=== PATIENT | female | born 1940 | race Caucasian/White ===

== ENCOUNTER → 2017-06-24 15:28 | Outpatient (CLI) | payer MEDICARE, OTHER, SELFPAY ==
--- NOTE | 2017-06-24 15:35 | MR_ITS ---
MR knee RT wo con Ordering Physician: Cam Alvarado MD Patient Age: 76 years: Female HISTORY: ITS.REASON: ACUTE PAIN OF RIGHT KNEE TECHNIQUE: Multiplanar multisequence imaging of 1.5 MR COMPARISON :September 2015 MRI of the right knee FINDINGS Large joint effusion. Most evident at suprapatellar bursa. Small/moderate Topete's cyst associated measured 4 cm length, Patellofemoral joint arthritis:. Significant degenerative arthritic changes. Prominent diffuse chondral loss & thinning most notable at lateral patellofemoral joint. Scattered subchondral cyst most evident along posterior margin of patella. Slight lateral bias patella slightly more evident today versus 2016.. Developing Marginal osteophytes about patella at patellofemoral joint.. . Lateral compartment prominent arthritic change... Joint space narrowing. Diffuse Chondral thinning and irregularity. Generous Marginal osteophytes from margin lateral compartment. Lateral meniscal tear. Meniscal tear involving the inferior surface of posterior horn, extends into the posterior body and continues as complex horizontal tear disrupting the anterior horn lateral meniscus. Probable small meniscal cyst draping downward anteriorly from anterior horn tear... Possible fragmentation of the anterior horn extending towards ACL insertion region The body of lateral meniscus is also noted to be somewhat displaced from the joint, as it accompanied the lateral marginal osteophytes laterally. . The medial compartment and medial meniscus are better maintained generous volume medial meniscus. Only minor chondral scuffing and irregularities of question is seen at the medial compartment. The medial and lateral collateral ligament I believe are intact although upper normal signal is seen at the superior insertion of the lateral collateral ligament the ACL, PCL intact.. It appears a noted small cyst inferior ACL has resolved Quadriceps tendon and patellar tendon appear intact. Fluid overlying patellar tendon less pronounced today.. & Nonspecific. IMPRESSION: 1. Marked progression of degenerative arthritic changes at Lateral Compartment since since 2016 MR study. ... Significant progressive joint space narrowing & chondral loss in the interval 2. Also Extensive Lateral Meniscal Tear has developed/progressed Tear beginning inferior surface posterior horn body, involving body, but most pronounced complex tear at anterior horn. 2. Patellofemoral joint arthritis again noted, with only minor progression since 2016 at this site 3. Large joint effusion.. Moderate-sized Topete's cyst again noted.
== END ==
PROVIDERS: Family Provider Family Medicine; PCP Family Medicine; Visit Provider Family Medicine
DX: M25.561 Pain in right knee (principal)
CPT/HCPCS: 73721

== ENCOUNTER 2017-08-24 09:30 | Outpatient (RCR) | payer MEDICARE, OTHER, SELFPAY | END 2017-08-24 09:31 | disposition home or self-care (01) | LOC: PT 09:30 | PROVIDERS: Family Provider Family Medicine; PCP Family Medicine; Visit Provider Orthopaedic Surgery | DX: M17.11 Unilateral primary osteoarthritis, right knee (principal) | CPT/HCPCS: 97010; 97014; 97016; 97033; 97035; 97110; G0283 ==

== ENCOUNTER → 2018-08-29 09:37 | Outpatient (CLI) | payer MEDICARE, OTHER, SELFPAY ==
--- NOTE | 2018-08-29 09:40 | MM_ITS ---
MM Dig screening mamm BI w/CAD CAD Screening COMPARISON: Digital mammograms 12/27/2011 INDICATION: There is no personal or family history of breast cancer. There is been previous biopsy right breast for benign disease. TECHNIQUE: Standard CC and MLO images were obtained. R2 CAD reviewed. FINDINGS: Moderate fibroglandular densities are seen in the central portions of both breasts. There is an asymmetric density with irregular borders upper outer quadrant right breast which is likely primarily post biopsy scarring. However there has been a slight increase in size and somewhat more suspicious irregular borders since the previous mammogram in addition there are small benign-appearing nodular densities in both breasts. However the nodular density lower outer quadrant right breast has shown interval increase in size from the previous study. Recommend the patient return for spot compression views of the right breast asymmetric lesion along with ultrasound of this lesion and the smaller nodular lesion as well. There are couple benign-appearing microcalcifications in each breast. There are 2 mole markers left breast. IMPRESSION: Upper fatty parenchyma with possible interval change in asymmetric density right breast BI-RADS Category: 0 Need Additional Imaging Evaluation RECOMMENDED FOLLOW-UP: IMM - IMMEDIATE FOLLOW-UP RECOMMENDED (A letter has been sent to the patient regarding results of the study.)
== END ==
PROVIDERS: PCP Family Medicine; Visit Provider Family Medicine
DX: Z12.31 Encounter for screening mammogram for malignant neoplasm of breast (principal)
CPT/HCPCS: 77067

== ENCOUNTER → 2018-09-28 12:40 | Outpatient (CLI) | payer MEDICARE, OTHER, SELFPAY ==
--- NOTE | 2018-09-28 12:44 | MM_ITS ---
MM Dig mamm DX unilat RT CAD, US breast RT complete INDICATION: Old abnormal mammogram ORDERING PHYSICIAN: Cam Alvarado MD PATIENT AGE: 77 years COMPARISON: 08/29/2018, 12/27/2011 TECHNIQUE: Spot compression views performed of the right breast along with right breast ultrasound FINDINGS: Average fibroglandular tissue noted. Asymmetric density is once again noted within the upper outer aspect of the right breast. Spot compression views failed to demonstrate a discrete mass in this area. Asymmetric density may be related prior surgery but is not felt to be significantly changed.. There is a well-circumscribed nodule in the medial aspect of the right breast measuring approximately 9 x 7 mm. Right breast ultrasound: There are multiple cysts present including a 2 mm cyst at 12:00, 3 mm cyst at 2:00, 3 mm cyst at 3:00, lobulated 7 mm cyst at 5:00 which may correspond to the described mammographic abnormality, 5 mm cyst at 9:00, complex cystic lesion measuring 9 x 5 mm at 9:00, and 4 mm cyst at 10:00, 4 mm cyst at 11:00, 5 mm cyst in the retroareolar region. IMPRESSION: No convincing evidence of malignancy. Multiple right breast cysts. Probably benign findings. Recommend 6 month mammographic and sonographic follow-up on the right BI-RADS Category: 3 Probably Benign Finding Short Term Follow-up RECOMMENDED FOLLOW-UP: 6M - 6 MONTH FOLLOW-UP (A letter has been sent to the patient regarding results of the study.)
== END ==
PROVIDERS: PCP Family Medicine; Visit Provider Family Medicine
DX: R92.8 Other abnormal and inconclusive findings on diagnostic imaging of breast (principal)
CPT/HCPCS: 76641; 77065

== ENCOUNTER → 2021-08-20 07:43 | Outpatient (CLI) | payer MEDICARE, OTHER, SELFPAY ==
--- NOTE | 2021-08-20 07:46 | US_ITS ---
FINAL REPORT CLINICAL HISTORY: HYPERTENSION,AAA FINDINGS: Sonographic images of the abdominal aorta were obtained. The abdominal aorta measures up to 1.8 cm. There is no evidence of abdominal aortic aneurysm. The iliacs are within normal limits. IMPRESSION: No evidence of abdominal aortic aneurysm. Reviewed, Interpreted and Dictated by Asad Christianson III, MD Transcribed by Angeline Briones Authenticated by Asad Christianson III, MD on 08/20/2021 09:29:39 AM [facility]
== END ==
PROVIDERS: PCP Family Medicine; Visit Provider Family Medicine
DX: I10 Essential (primary) hypertension (principal); Z13.6 Encounter for screening for cardiovascular disorders
CPT/HCPCS: 76705

== ENCOUNTER → 2021-10-16 08:46 | Outpatient (CLI) | payer MEDICARE, OTHER, SELFPAY ==
--- NOTE | 2021-10-16 08:51 | XR_ITS ---
FINAL REPORT TECHNIQUE: Bone mineral density was calculated of the lumbar spine and hip. CLINICAL HISTORY: . osteopenia prior 2017 FINDINGS: DEXA BONE DENSITY AXIAL SKELETON Using L1-4, the bone mineral density of the spine is 1.076 g/cm2, corresponding to T-score of 0.3. Note these values may be falsely elevated secondary to hypertrophic change. Using the left hip, the bone mineral density of the femoral neck is 0.601 g/cm2, corresponding to a T-score of -2.2. NOTE: T-score: Standard deviation compared with peak bone mass of young adult mean. *Following the recommendations of the International Society of Bone densitometry, classification of hip BMD is based on the lower of two T-scores; total hip or femoral neck. IMPRESSION: Diminished bone mineral density of the left hip consistent with osteopenia. FRAX 10 year fracture risk is 15 % for major osteoporotic fracture. Reviewed, Interpreted and Dictated by Asad Christianson III, MD Transcribed by Hilda Rowan Authenticated and [facility]
== END ==
PROVIDERS: PCP Family Medicine; Visit Provider Family Medicine
DX: M85.89 Other specified disorders of bone density and structure, multiple sites (principal)
CPT/HCPCS: 77080

== ENCOUNTER 2025-01-14 10:05 | Outpatient (CLI) | payer MEDICARE, OTHER, SELFPAY ==
--- OUTSIDE RECORDS SUMMARY | 2023-10-24 05:00 | XMS_ITS ---
Author Organization [facility] Address [address] [facility] [address] [facility] [address] [place] [id number] Care Team Providers Care Optical Design Engineer Name Role Phone Nelson Barrow Primary Care Provider JENNIFER BRUCE Unavailable Unavailable REASON FOR VISIT 6 Month Check Up Encounters Encounter Location Date Provider Diagnosis [facility] [address] [facility] [address] [place] [id number] 10/24/2023 Nelson Barrow Plan Of Treatment Next Appt Details Provider Name:Nelson Wilson ry, 07/15/2025 09:00:00 AM, [address], [address], [place], [id number], Progress Notes * Debbie CROCKETTDOB:1940 (84 yo F)Acc No.[id number]:10/24/2023 Progress Notes Patient: Debbie SCHMID Provider: Casandra Barrow M.D. :1940 A ge:82 Y S ex:Female Date:10/24/2023 Address:[address] [place] [address] Subjective: * Chief Complaints: * 1 . 6 Month Check Up. * Medical History: Objective: * Vitals: Assessment: Plan: * Treatment: * Images: Billing Information: * Visit Code: * Procedure Codes: * Electronic signature of Nga Barrow MD on 01/14/2025 at 10:10 AM EDT Sign off status: Pending * Provider: Casandra Barrow M.D. Date: 0 10/24/2023 Generated for Vinny musa/Edward/Leon on: 0 01/14/2025 10:10 AM EDT
--- OUTSIDE RECORDS SUMMARY | 2024-03-26 07:00 | XMS_ITS ---
Author Organization [facility] Address [address] [place] [id number] Care Team Providers Care First Crusher Name Role Phone Nelson Barrow Primary Care Provider JENNIFER BRUCE Unavailable Unavailable Allergies Allergen (clinical drug ingredient) Drug/Non Drug Allergy documented on EMR Reaction Allergy Type Onset Date Status codeine Codeine Unknown Drug Allergy Active Results Component Value Reference Range Notes Influenza Screen (in house) Reviewed date:03/26/2024 11:59:10 AM Interpretation: Performing Lab: Notes/Report: results Neg Covid test (in house) Reviewed date:03/26/2024 11:59:02 AM Interpretation: Performing Lab: Notes/Report: Result: Pos REASON FOR VISIT cough, chills Medications Medication SIG (Take, Route, Frequency, Duration) Notes Start Date End Date Status Verapamil HCl ER 180 MG 2 capsule Orally Once a day; Duration: 30 day(s) Active Promethazine-DM 6.25-15 MG/5ML 5 ml as needed Orally every 6 hrs 03/26/2024 Active Paxlovid (300/100) 20 x 150 MG & 10 x 100MG 3 tablets Orally Twice a day 03/26/2024 Active Aspirin 81 MG 1 tab(s) orally once a day; Duration: 30 day(s) Active Pravastatin Sodium 40 MG 1 tab(s) orally once a day (at bedtime); Duration: 30 day(s) Active Chlorthalidone 25 MG 1 tab(s) orally onc e a day; Duration: 90 days Active metroNIDAZOLE 500 MG 1 tablet Orally Thr ee times a day; Duration: 10 day(s) 07/27/2023 Active Hyoscyamine Sulfate 0.125 MG 1 tablet on the tongue and allow to dissolve as needed Orally every 4 hrs, prn 07/22/2023 Active PriLOSEC OTC 20 MG 1 cap(s) orally 2 ti mes a day Active Vital Signs Weight 172.4 lbs 03/26/2024 Blood pressure systolic 138 mm Hg 03/26/20 24 Blood pressure diastolic 68 mm Hg 024 Heart Rate 74 /min 03/26/2024 Height 62.50 in 03/26/2024 BMI 31.03 kg/m2 03/26/2024 Encounters Encounter Location Date Provider Diagnosis [facility] [address] [facility] [address] [facility] [address] [place] [id number] 03/26/2024 Nelson Barrow COVID-19 U07.1 Assessments Encounter Date Diagnosis (ICD Code) Assessment Notes Treatment Notes Treatment Clinical Notes Section Notes 03/26/2024 COVID-19 (ICD-10 - U07.1) Plan Of Treatment Medication Medication Name Sig Start Date Stop Date Notes Promethazine-DM 6.25-15 MG/5ML 5 ml as n eeded Orally every 6 hrs 03/26/2024 Paxlovid (300/100) 20 x 150 MG & 10 x 100MG 3 tablets Orally Twice a day 03/26/2024 Next Appt Details Follow Up: prn, Reason: Provider Name:Nelson Wilson ry, 07/15/2025 09:00:00 AM, [address] [facility] [address] [facility], [address], [place], [phone], Progress Notes * Debbie CROCKETTDOB:1940 (84 yo F)Acc No.[id number]:03/26/2024 Progress Notes Patient: Debbie SCHMID Provider: Casandra Barrow M.D. :1940 A ge:83 Y S ex:Female Date:03/26/2024 Address:[address] [place], [place] [id number] Subjective: * Chief Complaints: * 1 . Cough, chills. * HPI: E NT/respiratory: 83 year old female presents with c/o cough P t complains of dry without any sputum production cough . Associated with fever, nasal congestion and body aches . * ROS: D ERMATOLOGY: no R terrie. n o H meena. G ASTROENTEROLOGY: no N ausea. n o V omiting. U ROLOGY: no D ifficulty urinating. n o B lood in urine. * Medical History: H ypertension, Hyperlipidemia, Esophageal reflux, Thrombophlebitis right leg 2011, Right lateral meniscal tear, Cologuard 2018. * Surgical History: C holecystectomy , Hysterectomy , RT Leg Venous Laser Surgery . * Hospitalization/Major Diagno stic Procedure: D enies Past Hospitalization. * Family History: F ather: , cerebral aneurysm. M other: . 1 brother(s) , 1 sister(s) . 1 son(s) , 1 daughter(s) . . * Social History: C URRENT TOBACCO USE S moking Status: Patient does NOT smoke. C affeine: yes, frequency:. Marital Status: . Past smoking status: no. * Medications: T aking Aspirin 81 MG Tablet Delayed Release 1 tab(s) orally once a day , Taking PriLOSEC OTC 20 MG Tablet Delayed Release 1 cap(s) orally 2 times a day , Taking Hyoscyamine Sulfate 0.125 MG Tablet Disintegrating 1 tablet on the tongue and allow to dissolve as needed Orally every 4 hrs, prn , Taking metroNIDAZOLE 500 MG Tablet 1 tablet Orally Three times a day , Taking Chlorthalidone 25 MG Tablet 1 tab(s) orally once a day , Taking Pravastatin Sodium 40 MG Tablet 1 tab(s) orally once a day (at bedtime) , Taking Verapamil HCl ER 180 MG Capsule Extended Release 24 Hour 2 capsule Orally Once a day , Discontinued Vitamin D-3 125 MCG (5000 UT) Tablet 1 cap(s) orally once a week , Medication List reviewed and reconciled with the patient * Allergies: C odeine. Objective: * Vitals: W t:172.4, Temp:98.2, BP:138/68, HR:74, O2 Sat:94% on RA, Nurse:benigno, Ht: 62.50, BMI:31.03. * Examination: E NT/Respiratory: General Appearance: N AD. H eart : RRR. L ungs: c lear to auscultation bilaterally. Assessment: * Assessment: 1. C OVID-19 - U07.1 (Primary) Plan: * Treatment: Value Reference Range r esults Neg * Jen Schwarz 03/26/2024 11:08:3 1 AM > , Provider reviewed results while patient in office. ?LAB: Covid test (in house) (Collection Date & Time - 03/26/2024)* Value Reference Range R esult: Pos * Jen Schwarz 03/26/2024 11:08:0 7 AM > , Provider reviewed results while patient in office. * Procedure Codes: G 2211 Complex e/[place], [address] [place], [address] Flu Test- Nasal Swab, Modifiers: QW , 62053 COVID TEST IN HOUSE, Modifiers: QW * Follow Up: p rn * Images: Billing Information: * Visit Code: 93279 Office Visit, Est Pt., Level 3. * Procedure Codes: G2211 Complex e/[place] [address] [place]. [address] Flu Test- Nasal Swab. Modifiers: QW 79099 COVID TEST IN HOUSE. Modifiers: QW * Electronic signature of Nga Barrow MD on 01/14/2025 at 10:10 AM EDT Sign off status: Pending * Provider: Casandra Barrow M.D. Date: 05/27/2023 Generated for Vinny musa/Edward/eTransmitting on: 0 01/14/2025 10:10 AM EDT History and Physical Notes * HPI (History of Present Illness) Category Sub-Category Detail Notes Category Not es ENT/respiratory cough Pt complains of dry without any sputum production cough . Associated with fever, nasal congestion and body aches Examination Category Sub-Category Detail Notes Category Not es ENT/Respiratory Heart : RRR Lungs: clear to auscultatio n bilaterally General Appearance: NAD
--- OUTSIDE RECORDS SUMMARY | 2024-05-31 05:15 | XMS_ITS ---
Author Organization [facility] Address [address] [facility] [address] [place] [phone] Care Team Providers Care Radius Corner Machine Operator Name Role Phone Pushpa Nelson Primary Care Provider TEO JENNIFER Unavailable Unavailable REASON FOR VISIT flu shot Medications Medication SIG (Take, Route, Frequency, Duration) Notes Start Date End Date Status Verapamil HCl ER 180 MG 2 capsule Orally Once a day; Duration: 30 day(s) Active Aspirin 81 MG 1 tab(s) orally once a day; Duration: 30 day(s) Active Pravastatin Sodium 40 MG 1 tab(s) orally once a day (at bedtime); Duration: 30 day(s) Active Promethazine-DM 6.25-15 MG/5ML 5 ml as needed Orally every 6 hrs 03/26/2024 Active Paxlovid (300/100) 20 x 150 MG & 10 x 100MG 3 tablets Orally Twice a day 03/26/2024 Active PriLOSEC OTC 20 MG 1 cap(s) orally 2 ti mes a day Active metroNIDAZOLE 500 MG 1 tablet Orally Thr ee times a day; Duration: 10 day(s) 07/27/2023 Active Hyoscyamine Sulfate 0.125 MG 1 tablet on the tongue and allow to dissolve as needed Orally every 4 hrs, prn 07/22/2023 Active Chlorthalidone 25 MG 1 tab(s) orally onc e a day; Duration: 90 days Active Immunizations Vaccine Route Administration Date Status Comme nts Fluzone High Dose (65yr and older) IM Intramuscular 05/31/2024 Administered Encounters Encounter Location Date Provider Diagnosis [facility] [address] [facility] [address] [place] [phone] 05/31/2024 [place] Encounter for immunization Z23 Assessments Encounter Date Diagnosis (ICD Code) Assessment Notes Treatment Notes Treatment Clinical Notes Section Notes 05/31/2024 Encounter for immunization (ICD-10 - Z23) Plan Of Treatment Next Appt Details Provider Name:Nelson Pernell Steve ry, 07/15/2025 09:00:00 AM, [address], [address], [place], [phone], Progress Notes * CLAUDIAUrmilaelroyDOB:1940 (84 yo F)Acc No.[id number]:05/31/2024 Patient: Debbie SCHMID Provider: Casandra Barrow M.D. :1940 A ge:83 Y S ex:Female Date:05/31/2024 Address:[address] [place] [address], [place] Subjective: * Chief Complaints: * 1 . Flu shot. * Medical History: * Medications: T aking Aspirin 81 MG [...] once a day (at bedtime) , Taking Paxlovid (300/100) 20 x 150 MG & 10 x 100MG Tablet Therapy Pack 3 tablets Orally Twice a day , Taking Promethazine-DM 6.25-15 MG/5ML Syrup 5 ml as needed Orally every 6 hrs , Taking Verapamil HCl ER 180 MG Capsule Extended Release 24 Hour 2 capsule Orally Once a day , Medication List reviewed and reconciled with the patient Objective: * Vitals: Assessment: * Assessment: 1. E ncounter for immunization - Z23 (Primary) Plan: * Treatment: * Immunizations: Fluzone High Dose (65yr and older) : 0.5 mL (Route: Intramuscular) given by Jen Schwarz on Right Deltoid (Encounter for immunization) * Images: Billing Information: * Visit Code: * Procedure Codes: * Electronic signature of Nga Barrow MD on 01/14/2025 at 10:10 AM EDT Sign off status: Pending * Provider: Casandra Barrow M.D. Date: 0 05/31/2024 Generated for Vinny musa/Edward/Matthewitting on: 0 01/14/2025 10:10 AM EDT
--- OUTSIDE RECORDS SUMMARY | 2024-07-13 04:45 | XMS_ITS ---
Author Organization [facility] Address [address] [place] [id number] Care Team Providers Care Department Chair Name Role Phone Nelson Barrow Primary Care Provider JENNIFER BRUCE Unavailable Unavailable Allergies Allergen (clinical drug ingredient) Drug/Non Drug Allergy documented on EMR Reaction Allergy Type Onset Date Status codeine Codeine Unknown Drug Allergy Active Results Component Value Reference Range Notes P-Comprehensive Metabolic Pa josy (CMP) Reviewed date:07/15/2024 11:51:27 AM Interpretation:gluc 107 Performing Lab: Notes/Report: CLIA: [id number] Lyndon Castillo MD, Security System Sales Consultant [address] [facility] , [address], [place] [address] Test performed by [facility] Sodium 142 135-145 mmol/L Potassium 3.6 3.5-5.3 mmol/L Chloride 102 97-108 mmol/L CO2 26 22-32 mmol/L Glucose 107 65-99 mg/dL BUN 17 8-23 mg/dL Creatinine 0.75 0.50-1.00 mg/dL Calcium 10.0 8.6-10.4 mg/dL eGFR by Creatinine 80 >59 mL/min/1.73m2 Protein 7.6 6.0-8.3 g/dL Albumin 4.2 3.5-5.3 g/dL Alkaline Phosphatase 99 35-121 IU/L ALT (SGPT) 11 <5-47 IU/L AST (SGOT) 16 <5-40 IU/L Bilirubin, Total 0.5 <0.2-1.2 mg/dL A/G Ratio 1.2 1.1-2.5 P-Lipid Panel Reviewed date:07/15/2024 11:51:27 AM Interpretation: Normal Performing Lab: Notes/Report: Test performed by [facility] [employer] [address], [place] [address] Lyndon Castillo MD, Security System Sales Consultant CLIA: [id number] Cholesterol 170 <200 mg/dL Triglycerides 109 <150 mg/dL HDL Cholesterol 43 >39 mg/dL Cholesterol / HDL Ratio 3.95 0.00-4.44 Ratio Non-HDL Cholesterol 127 <130 mg/dL LDL Cholesterol (Calculation) 105 <130 mg/dL LDL Cholesterol Levels* Less than 100 mg/dL Optimal 100 to 129 mg/dL Near Optimal/ Above Optimal 130 to 159 mg/dL Borderline High 160 to 189 mg/dL High 190 mg/dL and above Very High * Categories as recommended by the 2004 ATPIII guidelines LDL/HDL Ratio 2.4 <3.3 Ratio LDL Cholesterol Patient History Test Date: 10/26/2022 LDL Results: 111 Units: mg/dL % Change: - Test Date: 07/13/2024 LDL Results: 105 Units: mg/dL % Change: -5% P-TSH reflex to FT4 Reviewed date:07/15/2024 11:51:27 AM Interpretation: Normal Performing Lab: Notes/Report: Test performed by [employer] [address] , [facility] [address], [place] [address] Lyndon Castillo MD, Security System Sales Consultant CLIA: [id number] TSH reflex to FT4 2.48 0.43-5.25 mU/L P-Microalbumin/Creatinine, R andom Urine Sample Reviewed date:07/15/2024 11:51:27 AM Interpretation: Normal Performing Lab: Notes/Report: Test performed by [employer] [address] , [address], [place] [address] Lyndon Castillo MD, Security System Sales Consultant CLIA: [id number] Albumin/Creatinine Ratio, Urine 9 0-30 ug/m g Microalbumin, Urine, Random 1.0 Creatinine, Urine 112.0 P-Vitamin D 25-Hydroxy Reviewed date:07/15/2024 11:51:27 AM Interpretation:40.9 Performing Lab: Notes/Report: Test performed by [employer] [address] , [address], [place] [address] Lyndon Castillo MD, Security System Sales Consultant CLIA: [id number] Vitamin D 25-Hydroxy 40.9 30.0-100.0 ng/mL Interpretation of Vitamin D 25 OH: < 20 ng/mL - Deficiency 20 - 29 ng/mL - Insufficiency 30 - 100 ng/mL - Sufficiency > 100 ng/mL - Super-therapeutic- toxicity may occur above this level. Clinical correlation required. REASON FOR VISIT med checkup with labs Medications Medication SIG (Take, Route, Frequency, Duration) Notes Start Date End Date Status Chlorthalidone 25 MG 1 tab(s) orally onc e a day; Duration: 90 days Active Verapamil HCl ER 180 MG 2 tablet Orally Once a day; Duration: 90 days 07/13/2024 Active PriLOSEC OTC 20 MG 1 cap(s) orally 2 ti mes a day; Duration: 90 days Active Pravastatin Sodium 40 MG 1 tab(s) orally once a day (at bedtime); Duration: 90 days Active Aspirin 81 MG 1 tab(s) orally once a day; Duration: 30 day(s) Active Vital Signs Weight 179 lbs 07/13/2024 Blood pressure systolic 140 mm Hg 07/14/19 25 Blood pressure diastolic 70 mm Hg 025 Heart Rate 85 /min 07/13/2024 Height 62.50 in 07/13/2024 BMI 32.21 kg/m2 07/13/2024 Encounters Encounter Location Date Provider Diagnosis [facility] [address] [facility] [address] [place] [id number] 07/13/2024 Nelson Barrow Essential hypertensi on I10 ; Hyperlipidemia, unspecified E78.5 ; Gastroesophageal reflux disease, unspecified whether esophagitis present K21.9 and Vitamin D deficiency E55.9 Assessments Encounter Date Diagnosis (ICD Code) Assessment Notes Treatment Notes Treatment Clinical Notes Section Notes 07/13/2024 Essential hypertension (ICD-10 - I10) 07/13/2024 Hyperlipidemia, unspecified (ICD-10 - E78.5) 07/13/2024 Gastroesophageal reflux disease, unspecified whether esophagitis present (ICD-10 - K21.9) 07/13/2024 Vitamin D deficiency (ICD-10 - E55.9) Plan Of Treatment Medication Medication Name Sig Start Date Stop Date Notes Chlorthalidone 25 MG 1 tab(s) orally onc e a day; Duration: 90 days Verapamil HCl ER 180 MG 2 tablet Orally Once a day; Duration: 90 days 07/13/2024 PriLOSEC OTC 20 MG 1 cap(s) orally 2 ti mes a day; Duration: 90 days Verapamil HCl ER 180 MG 2 capsule Orally Once a day Pravastatin Sodium 40 MG 1 tab(s) orally once a day (at bedtime); Duration: 90 days Next Appt Details Follow Up: 6 Months, Reason: Provider Name:Nelson ellington, 07/15/2025 09:00:00 AM, [address] [facility], [address], [place], [id number], Progress Notes * Domingo CROCKETT:1940 (84 yo F)Acc No.[id number]:07/13/2024 Progress Notes Patient: Debbie SCHMID Provider: Casandra Barrow M.D. :1940 A ge:83 Y S ex:Female Date:07/13/2024 Address:[facility] [address], [place], [place] Subjective: * Chief Complaints: * 1 . Med checkup with labs. * HPI: C ardiology: 83 year old female presents with c/o Blood Pressure Elevated?Pt here to f/u on hypertension, states she is doing well and does not have any concerns. c/o Hyperlipidemia P t is fasting today. * ROS: D ERMATOLOGY: no R terrie. [...] tab(s) orally once a day , Taking Verapamil HCl ER 180 MG Capsule Extended Release 24 Hour 2 capsule Orally Once a day , Taking Pravastatin Sodium 40 MG Tablet 1 tab(s) orally once a day (at bedtime) , Taking Chlorthalidone 25 MG Tablet 1 tab(s) orally once a day , Taking PriLOSEC OTC 20 MG Tablet Delayed Release 1 cap(s) orally 2 times a day , Discontinued Hyoscyamine Sulfate 0.125 MG Tablet Disintegrating 1 tablet on the tongue and allow to dissolve as needed Orally every 4 hrs, prn , Discontinued metroNIDAZOLE 500 MG Tablet 1 tablet Orally Three times a day , Discontinued Paxlovid (300/100) 20 x 150 MG & 10 x 100MG Tablet Therapy Pack 3 tablets Orally Twice a day , Discontinued Promethazine-DM 6.25-15 MG/5ML Syrup 5 ml as needed Orally every 6 hrs , Medication List reviewed and reconciled with the patient * Allergies: C odeine. Objective: * Vitals: W t:179, Temp:97.6, BP:140/70, HR:85, Nurse:benigno, Ht: 62.50, BMI:32.21. * Examination: C ardiology: General Appearance: p leasant, NAD. H EENT: u nremarkable. H eart sounds: R RR, normal S1, S2. L ungs: c lear, no rales or wheezes.?Extremities: n o leg edema. P eripheral pulses: 2 plus bilateral. ? Assessment: * Assessment: 1. E ssential hypertension - I10 (Primary) 2 . H yperlipidemia, unspecified - E78.5 3 . G astroesophageal reflux disease, unspecified whether esophagitis present - K21.9 4 . V itamin D deficiency - E55.9 Plan: * Treatment: Value Reference Range A /G Ratio 1.2 1.1-2.5 - * A lbumin 4.2 3.5-5.3 - g/dL * A lkaline Phosphatase 99 35-121 - IU/L * A LT (SGPT) 11 <5-47 - IU/L * A ST (SGOT) 16 <5-40 - IU/L * B ilirubin, Total 0.5 <0.2-1.2 - mg/dL * B UN 17 8-23 - mg/dL * C alcium 10.0 8.6-10.4 - mg/dL * C hloride 102 97-108 - mmol/L * C O2 26 22-32 - mmol/L * C reatinine 0.75 0.50-1.00 - mg/dL * G lucose 107 H 65-99 - mg/dL * P otassium 3.6 3.5-5.3 - mmol/L * S odium 142 135-145 - mmol/L * P rotein 7.6 6.0-8.3 - g/dL * e GFR by Creatinine 80 >59 - mL/min/1.73m2 * Laurita Feng 07/15/2024 11:51 :19 AM >See phone encounter ?LAB: P-Microalbumin/Creatinine, Random Urine Sample (Collection Date & Time - 07/13/2024 08:30 AM)?Normal* Value Reference Range A lbumin/Creatinine Ratio, Urine 9 0-30 - ug /mg * C reatinine, Urine 112.0 - mg/dL * M icroalbumin, Urine, Random 1.0 - mg/dL * Laruita Feng 07/15/2024 11:51 :19 AM >See phone encounter 2.?Hyperlipidemia, unspecified? Refill Pravastatin Sodium Tablet, 40 MG, 1 tab(s), orally, once a day (at bedtime), 90 days, 90, Refills 1.?LAB: P-Comprehensive Metabolic Panel (CMP) (Collection Date & Time - 07/13/2024 08:30 AM)?gluc 107* Value Reference Range A /G Ratio 1.2 1.1-2.5 - * A lbumin 4.2 3.5-5.3 - g/dL * A lkaline Phosphatase 99 35-121 - IU/L * A LT (SGPT) 11 <5-47 - IU/L * A ST (SGOT) 16 <5-40 - IU/L * B ilirubin, Total 0.5 <0.2-1.2 - mg/dL * B UN 17 8-23 - mg/dL * C alcium 10.0 8.6-10.4 - mg/dL * C hloride 102 97-108 - mmol/L * C O2 26 22-32 - mmol/L * C reatinine 0.75 0.50-1.00 - mg/dL * G lucose 107 H 65-99 - mg/dL * P otassium 3.6 3.5-5.3 - mmol/L * S odium 142 135-145 - mmol/L * P rotein 7.6 6.0-8.3 - g/dL * e GFR by Creatinine 80 >59 - mL/min/1.73m2 * Laurita Feng 07/15/2024 11:51 :19 AM >See phone encounter ?LAB: P-Lipid Panel (Collection Date & Time - 07/13/2024 08:30 AM)?Normal* Value Reference Range C holesterol / HDL Ratio 3.95 0.00-4.44 - Ratio * C holesterol 170 <200 - mg/dL * H DL Cholesterol 43 >39 - mg/dL * L DL Cholesterol (Calculation) 105 <130 - mg/d L * L DL/HDL Ratio 2.4 <3.3 - Ratio * N on-HDL Cholesterol 127 <130 - mg/dL * T riglycerides 109 <150 - mg/dL * Laurita Feng 07/15/2024 11:51 :19 AM >See phone encounter ?LAB: P-TSH reflex to FT4 (Collection Date & Time - 07/13/2024 08:30 AM)? Normal* Value Reference Range T SH reflex to FT4 2.48 0.43-5.25 - mU/L * JungLaurita 07/15/2024 11:51 :19 AM >See phone encounter 3.?Gastroesophageal reflux disease, unspecified whether esophagitis present? Refill PriLOSEC OTC Tablet Delayed Release, 20 MG, 1 cap(s), orally, 2 times a day, 90 days, 180, Refills 1.??4.?Vitamin D deficiency?LAB: P-Vitamin D 25-Hydroxy (Collection Date & Time - 07/13/2024 08:30 AM)? 40.9* Value Reference Range V itamin D 25-Hydroxy 40.9 30.0-100.0 - ng/mL * JungLaurita 07/15/2024 11:51 :19 AM >See phone encounter * Procedure Codes: G 2211 Complex e/m visit add on, 3077F SYST BP = 140 MM HG6 IT, 3078F DIAST BP < 80 MM HG * Follow Up: 6 Months * Images: Billing Information: * Visit Code: 72477 Office Visit, Est Pt., Level 4. * Procedure Codes: G2211 Complex e/m visit add on. 3077F SYST BP = 140 MM HG6 IT. 3078F DIAST BP < 80 MM HG. * Electronic signature of Nga Barrow MD on 01/14/2025 at 10:10 AM EDT Sign off status: Pending * Provider: Casandra Barrow M.D. Date: 0 07/13/2024 Generated for Vinny musa/Edward/Leon on: 0 01/14/2025 10:10 AM EDT History and Physical Notes * HPI (History of Present Illness) Category Sub-Category Detail Notes Category Not es Cardiology Blood Pressure Elevated Pt here to f/u on hypertension, states she is doing well and does not have any concerns Hyperlipidemia Pt is fasting today Examination Category Sub-Category Detail Notes Category Not es Cardiology Lungs: clear, no rales or wheezes HEENT: unremarkable Heart sounds: RRR, normal S1, S2 Extremities: no leg edema Peripheral pulses: 2 plus bilateral General Appearance: pleasant, NAD
--- OUTSIDE RECORDS SUMMARY | 2025-01-14 10:10 | XMS_ITS | Patient Health Record ---
Author Organization [facility] Address [address] [place] [id number] Care Team Providers Care Wholesale And Retail Merchant Name Role Phone Nelson Barrow Primary Care Provider [phone] JENNIFER BRUCE Unavailable Unavailable Allergies Allergen (clinical drug ingredient) Drug/Non Drug Allergy documented on EMR Reaction Allergy Type Onset Date Status codeine Codeine Unknown Drug Allergy Active Results Component Value Reference Range Notes P-Comprehensive Metabolic Pa josy (CMP) Reviewed date:07/15/2024 11:51:27 AM Interpretation:gluc 107 Performing Lab: Notes/Report: Test performed by [facility] , [address], [place] [address] Lyndon Castillo MD, Religion Professor CLIA: [id number] Sodium 142 135-145 mmol/L Potassium 3.6 3.5-5.3 [...] Normal Performing Lab: Notes/Report: Test performed by [facility], [address] , [place] [address] Lyndon Castillo MD, Religion Professor CLIA: [id number] Cholesterol 170 <200 mg/dL Triglycerides 109 <150 [...] Normal Performing Lab: Notes/Report: Test performed by [facility] [address] , [address], [place] [address] Lyndon Castillo MD, Religion Professor CLIA: [id number] TSH reflex to FT4 2.48 0.43-5.25 mU/L P-Microalbumin/Creatinine, R andom Urine Sample Reviewed date:07/15/2024 11:51:27 AM Interpretation: Normal Performing Lab: Notes/Report: [facility] [address] , [place] [address] Lyndon Castillo MD, Religion Professor CLIA: [id number] Albumin/Creatinine Ratio, Urine 9 0-30 ug/m g Microalbumin, Urine, Random 1.0 Creatinine, Urine 112.0 P-Vitamin D 25-Hydroxy Reviewed date:07/15/2024 11:51:27 AM Interpretation:40.9 Performing Lab: Notes/Report: Test performed by [facility] [address] , [address], [place] [address] Lyndon Castillo MD, Religion Professor CLIA: [id number] Vitamin D 25-Hydroxy 40.9 30.0-100.0 ng/mL Interpretation of Vitamin D 25 OH: < 20 ng/mL - Deficiency 20 - 29 ng/mL - Insufficiency 30 - 100 ng/mL - Sufficiency > 100 ng/mL - Super-therapeutic- toxicity may occur above this level. Clinical correlation required. Influenza Screen (in house) Reviewed date:03/26/2024 11:59:10 AM Interpretation: Performing Lab: Notes/Report: results Neg Covid test (in house) Reviewed date:03/26/2024 11:59:02 AM Interpretation: Performing Lab: Notes/Report: Result: Pos Reason For Referral No Information Medications Medication SIG (Take, Route, Frequency, Duration) Notes Start Date End Date Status PriLOSEC OTC 20 MG 1 cap(s) orally 2 ti mes a day; Duration: 90 days Active Verapamil HCl ER 180 MG 2 tablet Orally Once a day; Duration: 90 days 07/13/2024 Active Aspirin 81 MG 1 tab(s) orally once a day; Duration: 30 day(s) Active Pravastatin Sodium 40 MG 1 tab(s) orally once a day (at bedtime); Duration: 90 days Active Chlorthalidone 25 MG 1 tab(s) orally onc e a day; Duration: 90 days Active Immunizations Vaccine Route Administration Date Status Comme nts COVID 19 Moderna Unknown 04/25/2020 Administered COVID 19 Moderna Unknown 05/23/2020 Administered COVID 19 Moderna Unknown 02/20/2021 Administered Fluzone High Dose (65yr and older) IM Intramuscular 12/25/2013 Administered Fluzone High Dose (65yr and older) IM Intramuscular 03/04/2015 Administered Fluzone High Dose (65yr and older) IM Intramuscular 02/18/2016 Administered Fluzone High Dose (65yr and older) IM Intramuscular 02/12/2017 Administered Fluzone High Dose (65yr and older) IM Intramuscular 02/23/2018 Administered Given by jennie Cobb Fluzone High Dose (65yr and older) IM Intramuscular 02/19/2019 Administered Fluzone High Dose (65yr and older) IM Intramuscular 02/18/2020 Administered Fluzone High Dose (65yr and older) IM Intramuscular 01/20/2021 Administered Fluzone High Dose (65yr and older) IM Intramuscular 02/15/2022 Administered Fluzone High Dose (65yr and older) IM Intramuscular 04/25/2023 Administered Fluzone High Dose (65yr and older) IM Intramuscular 05/31/2024 Administered Fluzone High Dose (65yr and older) Unknown 01/14/2025 Pending Prevnar (PCV20) IM Intramuscular 04/20/2022 Administered xFluzone (6mos and older)-trivalent IM Intramuscular 03/09/2013 Administered Problems Problem Type SNOMED Code ICD Code Onset Dates Problem Status W/U Status Risk Notes Problem Vitamin D deficiency (45106084) Vitamin D deficiency (E55.9) Active confirmed Problem Essential hypertension (81463367) Essential hypertension (I10) Active confirmed Problem Abnormal mammogram (459956760) Abnormal mammogram (R92.8) Active confirmed Problem Osteopenia (981280434) Osteopenia (M85.80) Active confirmed Problem Cardiomegaly (2493108) Cardiomegaly (I51.7) Active confirmed Problem Hyperlipidemia (44476466) Hyperlipidemia, unspecified (E78.5) Active confirmed Problem Seasonal allergic rhinitis (050611742) Seasonal allergic reaction (J30.2) Active confirmed Problem Gastroesophageal reflux disease with esophagitis (121591450) Gastroesophageal reflux disease with esophagitis (K21.0) Active confirmed Problem Acute sinusitis (78185480) Acute non-recurrent sinusitis, unspecified location (J01.90) Active confirmed Problem Obesity (705169227) Non morbid o besity (E66.9) Active confirmed Problem Gastroesophageal reflux disease (294505961) Gastroesophageal reflux disease, unspecified whether esophagitis present (K21.9) Active confirmed Vital Signs Heart Rate 76 /min 01/14/2025 Blood pressure diastolic 78 mm Hg 01/14/2025 Height 62.50 in 01/14/2025 Blood pressure systolic 132 mm Hg 01/14/2025 Weight 174.4 lbs 01/14/2025 BMI 31.39 kg/m2 01/14/2025 Encounters Encounter Location Date Provider Diagnosis [facility] [address] [facility] [address] [place], [place] [id number] 03/26/2024 Nelson Dumont COVID-19 U07.1 [facility] [address] [place], [place] [id number] 05/31/2024 Nelson Dumont Encounter for immuni zation Z23 [facility] [address] [facility] [address] [place], [place] [id number] 07/13/2024 Nelson [place] Essential hypertensi on I10 ; Hyperlipidemia, unspecified E78.5 ; Gastroesophageal reflux disease, unspecified whether esophagitis present K21.9 and Vitamin D deficiency E55.9 [facility] [address] [facility] [address] [place], [place] [id number] 01/14/2025 Nelson [place] Essential hypertensi on I10 ; Gastroesophageal reflux disease, unspecified whether esophagitis present K21.9 ; Vitamin D deficiency E55.9 ; Right hip pain M25.551 ; group home use of drug Z79.899 ; Colon cancer screening Z12.11 and Hyperlipidemia, unspecified E78.5 [facility] [address] [place], [place] [id number] 02/03/2024 Nelson Dumont Hyperlipidemia, unspecified E78.5 [facility] [address] [place], [place] [id number] 04/06/2024 Nelson Dumont [facility] [address] [place], [place] [id number] 07/04/2024 Nelson [place] Hyperlipidemia, unspecified E78.5 and Gastroesophageal reflux disease, unspecified whether esophagitis present K21.9 [facility] [address] [place], [place] [id number] 07/15/2024 Nelson [place] Assessments Encounter Date Diagnosis (ICD Code) Assessment Notes Treatment Notes Treatment Clinical Notes Section Notes 02/03/2024 Hyperlipidemia, unspecified (ICD-10 - E78.5) 03/26/2024 COVID-19 (ICD-10 - U07.1) 05/31/2024 Encounter for immunization (ICD-10 - Z23) 07/04/2024 Hyperlipidemia, unspecified (ICD-10 - E78.5) 07/13/2024 Essential hypertension (ICD-10 - I10) 07/13/2024 Hyperlipidemia, unspecified (ICD-10 - E78.5) 01/14/2025 Essential hypertension (ICD-10 - I10) 01/14/2025 Gastroesophageal reflux disease, unspecified whether esophagitis present (ICD-10 - K21.9) 07/13/2024 Gastroesophageal reflux disease, unspecified whether esophagitis present (ICD-10 - K21.9) 01/14/2025 Vitamin D deficiency (ICD-10 - E55.9) 07/04/2024 Gastroesophageal reflux disease, unspecified whether esophagitis present (ICD-10 - K21.9) 07/13/2024 Vitamin D deficiency (ICD-10 - E55.9) 01/14/2025 Right hip pain (ICD-10 - M25.551) 01/14/2025 termite control service representative use of drug (ICD-10 - Z79.899) 01/14/2025 Colon cancer screening (ICD-10 - Z12.11) 01/14/2025 Hyperlipidemia, unspecified (ICD-10 - E78.5) Plan Of Treatment Pending Test Test Name Order Date X ray : Spine, lumbosacral 01/14/2025 X ray : Hip, right 01/14/2025 CBC Venipuncture (in house) 01/14/2025 Cologuard 01/14/2025 P-Comprehensive Metabolic Panel (CMP) P-Microalbumin/Creatinine, Random Urine Sample 10/26/2022 P-Vitamin D 25-Hydroxy 01/14/2025 Next Appt Details Provider Name:Nelson Wilson ry, 07/15/2025 09:00:00 AM, [address], [address], [place], [id number], Insurance Providers Payer Name Payer Address Payer Phone Subscriber Number Group Number Insured Name Patient Relationship to Insured Coverage Start Date Coverage End Date MEDICARE PART B [address] [address] [place] [address] [id number] Debbie Crockett Self - patient is the insured [employer] [facility] [place] [id number] Debbie Crockett Self - patient is the insured Medications Administered Medication Instructions Date of Administration Dosage Notes Bicillin LA 1,200,000 04/19/2015 2 mL Medical (General) History Medical History History ICD Code Hypertension Hyperlipidemia Esophageal reflux Thrombophlebitis right leg 2011 Right lateral meniscal tear [id number] Surgical History Surgery Date(Month/Year) Cholecystectomy Hysterectomy RT Leg Venous Laser Surgery
--- NOTE | 2025-01-14 10:11 | XR_ITS ---
FINAL REPORT CLINICAL HISTORY: .PAIN COMPARISON: None FINDINGS: LUMBOSACRAL SPINE SERIES Five views of the lumbosacral spine were obtained. There is no fracture present. There is no malalignment. Moderate disc space narrowing L1-2 and L2-3. Moderate facet sclerosis in the lower lumbar spine. Findings are consistent with degenerative disc disease and facet arthropathy. IMPRESSION: Degenerative disc disease and facet arthropathy. Reviewed, Interpreted and Dictated by Roberto Cowan MD Transcribed by Dahiana Dickerson Authenticated and [facility]
--- NOTE | 2025-01-14 10:11 | XR_ITS ---
FINAL REPORT CLINICAL HISTORY: PAIN COMPARISON: None FINDINGS: RIGHT HIP Two views of the right hip with an AP view of the pelvis demonstrate no acute fracture or dislocation. 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 Subchondral sclerosis and osteophyte formation are noted. The visualized bony structures are well aligned. No soft tissue abnormality is seen. IMPRESSION: Advanced degenerative changes without acute bony abnormality. Reviewed, Interpreted and Dictated by Roberto Cowan MD Transcribed by Dahiana Dickerson Authenticated and [facility]
--- OUTSIDE RECORDS SUMMARY | 2025-01-14 10:11 | XMS_ITS | Clinical Summary ---
Author Organization [facility] Address [address] [place] [address] Care Team Providers Care Beamer Operator Name Role Phone Nelson [place] MD Primary Care Provider [phone] Family History Medical History Relation Name Comments Breast cancer Neg Hx Ovarian cancer Neg Hx Social History Tobacco Use Types Packs/Day Years Used Date Smoking Tobacco: Never Assessed Abuse Screen Answer Date Recorded Unsafe at Home or Work/School Not on file Feels Threatened by Someone? Not on file 03/2023 Does Anyone Keep You from Co ntacting Others or Doint Things Outside the Home? Not on file 01/27/2023 Physical Sign of Abuse Present Not on file 1 Housing Stability Answer Date Recorded Current Living Arrangements Not on file 01/16 Potentially Unsafe Housing Conditions Not on gamal e 01/27/2023 Family and Community Support Answer El[place] e Recorded Help with Day-to-Day Activities Not on file 01/27/2023 Lonely or Isolated Not on file 01/27/2023 Employment Answer Date Recorded Do you want help finding or keeping work or a alexandria b? Not on file 01/27/2023 Disabilities Answer Date Recorded Concentrating, Remembering, or Making Decisions Difficulty Not on file 01/27/2023 Doing Errands Independently Difficulty Not on fi le 01/27/2023 Education Answer Date Recorded Help with school or training? Not on file Preferred Language Not on file 01/27/2023 Comments No Sex and Gender Information Value Date Recorded Sex Assigned at Not on file Legal Sex Female 10:56 AM EDT Gender Identity Not on file Sexual Orientation Not on file Plan of Treatment Health Maintenance Due Date Last Done Comments ANNUAL PHYSICAL 1940 DXA SCAN 1940 TDAP/TD VACCINES (1 - Tdap) 1961 ZOSTER VACCINE (1 of 2) 1992 RSV Vaccine - Adults (1 - 1- dose 75+ series) 2017 INFLUENZA VACCINE 11/16/2024 02/15/2022, , 02/18/2020, Additional history exists COVID-19 Vaccine (4 - 2024-2 6 season) 2024 02/20/2021, 05/23/2020, 04/25/2020 Pneumococcal Vaccine 50+ Completed 04/20/2022 Insurance NICHOLESHIN TEJADA [id number] MEDICARE A & B [employer] [facility] Care Teams Beamer Operator Relationship Specialty Start Date End Date Nelson [place] MD [address] [facility] [address] [facility] [address] [place] [address] PCP - General Family Medicine 03/22/23
== END 2025-01-14 23:59 | disposition home or self-care (01) ==
LOC: RAD 10:07
PROVIDERS: PCP Family Medicine; Visit Provider Family Medicine
DX: M47.816 Spondylosis without myelopathy or radiculopathy, lumbar region (principal); M51.369 Other intervertebral disc degeneration, lumbar region without mention of lumbar back pain or lower extremity pain; M16.11 Unilateral primary osteoarthritis, right hip
CPT/HCPCS: 72110; 73502